=== PATIENT | female | born 1955 | race Caucasian/White ===

== ENCOUNTER 2022-12-05 09:01 | Outpatient (CLI) | payer MEDICARE, BC, SELFPAY ==
--- NOTE | 2022-12-05 10:11 | W.ANESCHARGE ---
Anesthesia Charges Start Date/Time Anesthesia Start Date: 12/05/22 Anesthesia Start Time: 09:44 Stop Date/Time Anesthesia Stop Date: 12/05/22 Anesthesia Stop Time: 10:08
--- NOTE | 2022-12-05 10:52 | W.ANESCHARGE ---
Anesthesia Charges Start Date/Time Anesthesia Start Date: 12/05/22 Anesthesia Start Time: 09:44 Stop Date/Time Anesthesia Stop Date: 12/05/22 Anesthesia Stop Time: 10:08
== END 2022-12-05 09:02 | disposition home or self-care (01) ==
LOC: OP CLINIC 09:03
PROVIDERS: PCP Student in an Organized Health Care Education/Training Program; Visit Provider Internal Medicine Gastroenterology
DX: Z86.010 Personal history of colon polyps (principal); K63.5 Polyp of colon
CPT/HCPCS: 45385; 811; 88305; J2704

== ENCOUNTER 2023-02-03 05:14 | Emergency (ER) | payer MEDICARE, BC, SELFPAY ==
[2023-02-03] VITALS (13 sets, daily range): BP systolic 156–204; BP diastolic 83–118; PULSE 71–84; RESP 14; TEMP 36.1; O2SAT 91–99; BMI 26.5
--- NOTE | 2023-02-03 05:32 | ED_ITS ---
HPI - Chest Pain General Time Seen by Provider: 05:32 Date Seen: 02/03/23 Chief Complaint: Hypertension Stated Complaint: high blood pressure, cough, chest pain Time Seen by Provider: 02/03/23 05:30 Source: patient, family and RN notes reviewed Mode of arrival: ambulatory Limitations: no limitations History of Present Illness HPI narrative: 67-year-old female who presents with complaints of feeling poorly for the past nine days. She reports sinus congestion, occasional cough, hoarse voice, fatigue. Has taken to COVID test which were both negative. Blood pressure was elevated yesterday which prompted a call the clinic, they indicated she should come to the emergency department. She denies headache, chest pain, vomiting, diarrhea, abdominal pain, urinary symptoms, shortness of breath. Related Data Home Medications Medication Instructions Recorded Confirmed atorvastatin 20 mg tablet 20 mg PO QPM 02/03/23 02/03/23 cholecalciferol (vitamin D3) 50 50 mcg PO DAILY 02/03/23 02/03/23 mcg (2,000 unit) capsule denosumab 60 mg/mL subcutaneous 60 mg subcut [id number] 02/03/23 02/03/23 syringe (Prolia) fluoxetine 20 mg capsule 20 mg PO QAM 02/03/23 02/03/23 fluoxetine 40 mg capsule mg PO 02/03/23 labetalol 100 mg tablet 50 mg PO BID 02/03/23 02/03/23 trazodone 50 mg tablet 150 mg PO QPM PRN insomnia 02/03/23 02/03/23 Previous Rx's Medication Instructions Recorded albuterol sulfate 90 mcg/actuation 2 puff inhalation Q4H PRN 02/03/23 aerosol inhaler shortness of breath or wheezing #8.5 grams prednisone 20 mg tablet 40 mg (2 x 20 mg) PO DAILY #10 tabs 02/03/23 Allergies Allergy/AdvReac Type Severity Reaction Status Date / Time No Known Drug Allergies Allergy Verified 02/03/23 05:28 Review of Systems Status of ROS Reports: 10 or more systems reviewed and unremarkable except as noted in History and below PFSH PFSH Social History Smoking Status: Current every day smoker What tobacco products do you use: cigarettes Smoking packs per day: 1.25 Smoking cigarettes per day: 25.0 Years smoked: 25 Smoking pack-years: 31.25 Do you use any of these nicotine containing products: None Second hand tobacco smoke exposure: No How often do you have a drink containing alcohol: 2-3 times a week AUDIT-C Alcohol total score: 3 Non-prescribed substance use: denies use Exam Const Vital Signs, click to edit/add: Vital Signs - 24 hr 02/03/23 05:22 02/03/23 06:26 02/03/23 06:30 Temperature 97.0 F L Pulse Rate 83 78 Pulse Rate [Pulse Oximeter] 71 Respiratory Rate 14 Blood Pressure Blood Pressure [Right Upper Arm] 204/114 H Pulse Oximetry 95 97 99 Oxygen Delivery Method Room Air Room Air 02/03/23 06:32 02/03/23 06:45 Temperature Pulse Rate 80 80 Pulse Rate [Pulse Oximeter] Respiratory Rate Blood Pressure 190/106 H Blood Pressure [Right Upper Arm] Pulse Oximetry 99 94 Oxygen Delivery Method Course Course ED Course: Patient seen and examined, prior records are reviewed. Social determine its of health includes smoking and access to affordable Healthcare, history of anxiety and depression as well as hypertension, Patient presents today with upper respiratory symptoms for about a week and elevated blood pressures. Blood pressure in the emergency department initially with high but at the time I saw the patient to was 143/111. Voice is very hoarse, occasional cough. She has bilateral inspiratory and expiratory wheezes. Symptoms are most consistent with viral infection and bronchitis, labs are ordered to evaluate for underlying cardiac disease or evidence for heart failure, chest x-ray to evaluate for pneumonia. No pleuritic chest pain, shortness of breath to suggest pulmonary embolism, defer CT imaging for now. Reevaluation(s) Time of Reevaluation #1: 07:37 Reevaluation #1: Chest x-ray independently interpreted by me negative for acute findings. Labs independently interpreted by me with negative COVID, negative influenza, no leukocytosis or anemia, troponin negative, BNP normal. Patient has upper respiratory symptoms overlying likely COPD with acute exacerbation. She will be discharged with inhaler, prednisone, and follow up with primary care. No indication for antibiotics at this time is no acute infiltrates on x-ray or lab or exam findings for bacterial pneumonia. I did discuss patient's mental health with her. She reports a long history of depression and anxiety, not currently seemed a therapist or counselor. She says she has had suicidal thoughts every day for most of her life but would never hurt herself or follow through on this, no plan, declines mental health assessment and is able to contract for safety. Vital Signs Vital signs: Initial Vital Signs Temperature 97.0 F L 02/03/23 05:22 Temperature Source Temporal Artery Scan 02/03/23 05:22 Pulse Rate 71 02/03/23 05:22 Respiratory Rate 14 02/03/23 05:22 Blood Pressure 204/114 H 02/03/23 05:22 Blood Pressure Mean 144 H 02/03/23 05:22 Blood Pressure Position Supine 02/03/23 05:22 Pulse Oximetry 95 02/03/23 05:22 Oxygen Delivery Method Room Air 02/03/23 05:22 Vital Signs Temperature 97.0 F L 02/03/23 05:22 Pulse Rate 71 02/03/23 05:22 Respiratory Rate 14 02/03/23 05:22 Blood Pressure 204/114 H 02/03/23 05:22 Pulse Oximetry 95 02/03/23 05:22 Oxygen Delivery Method Room Air 02/03/23 05:22 Temperature 97.0 F L 02/03/23 05:22 Pulse Rate 80 02/03/23 06:45 Respiratory Rate 14 02/03/23 05:22 Blood Pressure 190/106 H 02/03/23 06:32 Pulse Oximetry 94 02/03/23 06:45 Oxygen Delivery Method Room Air 02/03/23 06:26 MDM - Chest Pain Lab Data Labs: Lab Results 02/03/23 Range/Units 06:05 WBC 6.69 (4.50-11.00) K/uL RBC 3.84 L (4.00-5.20) m/uL Hgb 12.6 (12.0-16.0) gm/dL Hct 35.9 (33.0-51.0) % MCV 94 (80-100) fL MCH 33 (26-34) pg MCHC 35 (32-36) gm/dL RDW Coeff of Eusebia 12.1 (11.5-15.5) % Plt Count 242 (140-440) K/uL Neut % (Auto) 68.8 (42.0-72.0) % Lymph % (Auto) 21.5 (20-44) % [place] % (Auto) 6.6 (0.0-11.0) % Eos % (Auto) 1.9 (0.0-7.0) % Baso % (Auto) 0.3 (0.0-3.0) % Neut # (Auto) 4.60 (1.7-7.0) K/uL Lymph # (Auto) 1.44 (0.90-2.90) K/uL [place] # (Auto) 0.40 (0.00-0.90) K/UL Eos # (Auto) 0.13 (0.00-0.50) K/uL Baso # (Auto) 0.02 (0.00-0.30) K/uL Abs Immat Gran (auto) 0.06 (0.00-0.30) K/uL Imm/Tot Granulo (auto) 0.9 % Sodium 136 (135-149) mmol/L Potassium 3.8 (3.6-5.1) mmol/L Chloride 103 (96-114) mmol/L Carbon Dioxide 25 (20-32) mmol/L Anion Gap 8 (7-15) mEq/L BUN 13 (7-30) mg/dL Creatinine 0.8 (0.5-1.5) mg/dL Estimated Creat Clear 42.59 Estimated GFR 80 ml/min Glucose 101 (60-115) mg/dL Calcium 9.4 (8.4-10.6) mg/dL Magnesium 2.0 (1.5-2.6) mg/dL NT-Pro-B Natriuret Pep 126 pg/mL SARS-CoV-2 (PCR) Negative SARS-CoV-2 (Negative) Influenza Type A (PCR) Negative PCR FLU A (Negative) Influenza Type B (PCR) Negative PCR FLU B (Negative) RSV (PCR) Negative PCR RSV (Negative) POC Troponin I 0.00 L (0.01-0.04) ng/ml ECG Data Attestation: I personally reviewed and interpreted this ECG as follows: ECG interpretation date: 02/03/23 ECG interpretation time: 05:54 Prior ECG tracings: not available for review Interpretation: Sinus rhythm rate 70, no acute ST elevations or depressions, normal intervals, normal axis, QTC 444, VA 178 Discharge Plan Discharge Clinical Impression: Acute upper respiratory infection, Acute bronchitis Patient Disposition: Home, Self-Care Condition: Stable Instructions: Acute Bronchitis (ED), Wheezing (ED) Additional Instructions: Use inhaler 2 puffs every 2 hours while awake for 24 hours, then 2 puffs every 3 hours while awake for 24 hours, then 2 puffs every 4 hours while awake for 24 hours Take prednisone as prescribed Follow-up with your primary care doctor next week Activity Level: No Restrictions Prescriptions: New albuterol sulfate 90 mcg/actuation HFA aerosol inhaler 2 puff inhalation Q4H PRN (Reason: shortness of breath or wheezing) Qty: 8.5 0RF prednisone 20 mg tablet 40 mg PO DAILY Qty: 10 0RF No Action fluoxetine 40 mg capsule PO atorvastatin 20 mg tablet 20 mg PO QPM trazodone 50 mg tablet 150 mg PO QPM PRN (Reason: insomnia) labetalol 100 mg tablet 50 mg PO BID fluoxetine 20 mg capsule 20 mg PO QAM cholecalciferol (vitamin D3) 50 mcg (2,000 unit) capsule 50 mcg PO DAILY Prolia 60 mg/mL syringe 60 mg subcut [id number] Follow Up/Referrals: LISSETH MIN DO [Primary Care Provider] - Stand Alone [facility]
--- NOTE | 2023-02-03 05:45 | CRLHL7_ITS ---
For Patients: As a result of the Cures Act, medical imaging exams and procedure reports are released immediately into your electronic medical record. You may view this report before your referring provider. If you have questions, please contact your health care provider. INDICATION: Cough and chest pain. TECHNIQUE: Chest 2 views. COMPARISON: 03/12/2021. FINDINGS: Cardiovascular and mediastinum: Heart size and vasculature are normal in caliber and appearance. Lungs and pleural spaces: Lungs are clear. No sign of infiltrate or mass. No sign of pleural effusion. No pneumothorax. Bones and soft tissues: No significant findings. IMPRESSION: No acute findings and no significant changes from the prior exam. Dictated by Samuel Mcdermott MD @ 02/03/2023 6:38:11 AM (Electronically Signed)
[2023-02-03] MEDS: IPRAT-ALBUT 0.5-2.5 MG/3 ML NEB 1 NEB IH (06:23)
[2023-02-03 06:55] LABS: Chloride* 103 mmol/L (96-114); Sodium* 136 mmol/L (135-149)
[2023-02-03 06:56] LABS: Potassium* 3.8 mmol/L (3.6-5.1)
[2023-02-03 06:58] LABS: Anion Gap 8 mEq/L (7-15); Carbon Dioxide* 25 mmol/L (20-32); Creatinine* 0.8 mg/dL (0.5-1.5); Est. Creatinine Clearance* 42.59; Estimated Glomerular Filt Rate 80 ml/min
[2023-02-03 06:59] LABS: Blood Urea Nitrogen* 13 mg/dL (7-30); Calcium* 9.4 mg/dL (8.4-10.6); Glucose* 101 mg/dL (60-115)
[2023-02-03 07:06] LABS: PCR FLU A Negative PCR FLU A (Negative); PCR FLU B Negative PCR FLU B (Negative); PCR RSV Negative PCR RSV (Negative)
[2023-02-03 07:10] LABS: SARS PCR* Negative SARS-CoV-2 (Negative)
[2023-02-03 07:18] LABS: Basophils Absolute Auto 0.02 K/uL (0.00-0.30); Basophils Percent Auto 0.3 % (0.0-3.0); Eosinophils Absolute Auto 0.13 K/uL (0.00-0.50); Eosinophils Percent Auto 1.9 % (0.0-7.0); Hematocrit 35.9 % (33.0-51.0); Hemoglobin* 12.6 gm/dL (12.0-16.0); Immature Granulocytes Abs Auto 0.06 K/uL (0.00-0.30); Immature Granulocytes Pct Auto 0.9 %; Lymphocytes Absolute Auto 1.44 K/uL (0.90-2.90); Lymphocytes Percent Auto 21.5 % (20-44); Mean Corpuscular HGB Conc 35 gm/dL (32-36); Mean Corpuscular Hemoglobin 33 pg (26-34); Mean Corpuscular Volume 94 fL (80-100); Monocytes Percent Auto 6.6 % (0.0-11.0); Neutrophils Percent Auto 68.8 % (42.0-72.0); Platelet Count* 242 K/uL (140-440); RDW Coefficient of Variation % 12.1 % (11.5-15.5); Red Blood Count 3.84 m/uL (4.00-5.20); White Blood Count* 6.69 K/uL (4.50-11.00)
[2023-02-03 07:20] LABS: Slide Review Reflex No
[2023-02-03 07:21] LABS: NT Pro B Type NatriureticPept* 126 pg/mL
[2023-02-03] MEDS: METHYLPREDNISOLONE SOD SUCC 62.5 MG/ML (125) 125 MG IVP (08:06)
== END 2023-02-03 08:27 | disposition home or self-care (01) ==
PROVIDERS: Emergency Provider Family Medicine; PCP Student in an Organized Health Care Education/Training Program
DX: J20.8 Acute bronchitis due to other specified organisms (principal)
CPT/HCPCS: 36415; 71046; 80048; 83735; 83880; 84484; 85025; 87631; 93005; 94640; 96374; 99284; 99285; J2930

== ENCOUNTER 2023-04-16 10:12 | Outpatient (CLI) | payer MEDICARE, BC, SELFPAY | END 2023-04-16 10:13 | disposition home or self-care (01) | LOC: AMB 04-18 12:42 | PROVIDERS: PCP Student in an Organized Health Care Education/Training Program; Visit Provider Family Medicine | DX: R51.9 Headache, unspecified (principal); R42 Dizziness and giddiness | CPT/HCPCS: A0425; A0427 ==

== ENCOUNTER 2023-04-16 10:41 | Emergency (ER) | payer MEDICARE, BC, SELFPAY ==
[2023-04-16 10:48] VITALS: BP 151/102; PULSE 115; RESP 18; TEMP 36.8; O2SAT 93; BMI 25.7
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
[2023-04-16 11:13] VITALS: PULSE 120; O2SAT 95
[2023-04-16 11:15] VITALS: PULSE 115; O2SAT 93
--- NOTE | 2023-04-16 11:58 | ED.NURSE ---
pt was released to for a sober ride home, discharge instruction were also given to to review with pt at a later time.
== END 2023-04-16 11:59 | disposition home or self-care (01) ==
PROVIDERS: Emergency Provider Family Medicine; PCP Student in an Organized Health Care Education/Training Program
DX: F10.129 Alcohol abuse with intoxication, unspecified (principal); F41.9 Anxiety disorder, unspecified; R45.2 Unhappiness
CPT/HCPCS: 99283; 99284

== ENCOUNTER 2025-01-24 04:13 | Emergency (ER) | payer MEDICARE, BC, SELFPAY ==
--- OUTSIDE RECORDS SUMMARY | 2025-01-24 04:15 | XMS_ITS | Clinical Summary ---
Author Organization [facility] Address [address] [place] [id number] Care Team Providers Care Lithographed Plate Inspector Name Role Phone Jose Tobar DO Primary Care Provider [phone] Allergies Active Allergy Reactions Criticality Noted Date Comments Atenolol Dizziness,Intolerance-Can't Take 11/2006 Enalapril Headache High 06/03/2020 Erythromycin Intolerance-Can't Ta ke,Stomach Upset 07/19/2006 Hydrochlorothiazide Headache High 06/03/2020 Lisinopril Renal Failure 07/01/2009 Nifedipine Edema 06/15/2009 Medications sennosides-docusa te (SENOKOT S) (8.6-50 mg) tablet Twice A Day 07/25/19 21 Active fish oil-omega-3 fatty acids 300-1,000 mg Take 1 Capsule by mouth once daily. 12/14/19 22 Active naltrexone (REVIA) 50 mg tabletIndications :Alcoholism (HC) Take 1 Tablet (50 mg) by mouth once daily. 30 Tablet 2 06/13/19 24 Active atorvastatin (LIPITOR) 20 mg tabletIndications :Hyperlipidemia, unspecified hyperlipidemia type TAKE 1 TABLET (20 MG) BY MOUTH ONCE DAILY IN THE EVENING 90 Tablet 3 03/11/20 24 Active azithromycin (Zithromax Z-Jimmie) 250 mg tabletIndications :Bronchitis with bronchospasm Take 500 mg (2 tabs) by mouth on day 1, then 250 mg (1 tab) daily for days 2-5. 6 Tablet 04/05/20 24 Active albuterol HFA (ProAir HFA) 90 mcg/actuation inhalerIndication s:Bronchitis with bronchospasm Inhale 1-2 Puffs by mouth every 6 hours if needed for Shortness of Breath 1st choice. 1 Each 04/05/20 24 Active benzonatate (TESSALON) 100 mg capsuleIndication s:Bronchitis with bronchospasm Take 1 Capsule (100 mg) by mouth 3 times daily if needed for Cough. 30 Capsule 04/05/20 24 Active cholecalciferol (VITAMIN D3) 2,000 unit capsuleIndication s:Vitamin D deficiency TAKE 1 CAPSULE (2,000 UNITS) BY MOUTH ONCE DAILY. 90 Capsule 2 05/18/19 25 Active clobetasol 0.05 % ointment APPLY TO AFFECTED AREA ON LEFT THIGH TWICE DAILY FOR UP TO TWO WEEKS AT A TIME. TAKE A TWO WEEK BREAK, THEN REPEAT NEEDED FOR FLARES. 08/21/19 25 Active ketoconazole 2 % cream APPLY THIN LAYER TO TOE NAILS AND NAIL BEDS 1-2X DAILY ONGOING. 08/21/19 25 Active nicotine 21 mg/24 hr 21 mg/24 hr patchIndications: Tobacco abuse Apply 1 Patch on dry, clean, hairless skin once daily. 30 Patch 10/11/19 25 Active cloNIDine HCL 0.2 mg tabletIndications :Resistant hypertension,Inso mnia, idiopathic,JUMANA (generalized anxiety disorder) Take 1 Tablet (0.2 mg) by mouth two times daily. 180 Tablet 3 11/13/19 25 Active alendronate (FOSAMAX) 70 mg tabletIndications :Age related osteoporosis, unspecified pathological fracture presence TAKE 1 TABLET (70 MG) BY MOUTH ONCE A WEEK IN THE MORNING. TAKE ON EMPTY STOMACH WITH FULL GLASS OF WATER. DO NOT LIE DOWN FOR 1 HR. 13 Tablet 3 12/07/19 25 Active labetaloL (TRANDATE) 200 mg tabletIndications :Resistant hypertension TAKE 1 TABLET BY MOUTH TWO TIMES DAILY. 60 Tablet 01/20/20 25 Active FLUoxetine (PROZAC) 40 mg capsuleIndication s:Depression, major, single episode, moderate (HC) TAKE 2 CAPSULES (80 MG) BY MOUTH ONCE DAILY IN THE MORNING. 60 Capsule 01/20/20 25 Active labetaloL (TRANDATE) 200 mg tabletIndications :Resistant hypertension Take 1 Tablet (200 mg) by mouth two times daily. 180 Tablet 3 01/18/20 24 025 Discontinued FLUoxetine (PROZAC) 40 mg capsuleIndication s:Depression, major, single episode, moderate (HC) Take 2 Capsules (80 mg) by mouth once daily in the morning. 180 Capsule 3 01/18/20 24 025 Discontinued Active Problems Problem Noted Date Diagnosed Date Age-related osteoporosis wit hout current pathological fracture 11/29/2022 White coat syndrome with diagnosis of hypertensi on 12/13/2021 Colon polyp 08/11/2021 Overview (12/07/2022): Colonoscopy 07/2021 SSA with cytological dysplasia, multiple tubular adenomas, repeat in 6 months with propofol sedation Colonoscopy 11/2022 SSA, repeat in 5 years, propofol Alcoholism 03/22/2021 Back pain 03/22/2021 Gastritis 03/22/2021 Adrenal nodule 03/22/2021 status post left total knee arthroplasty 02/04/19 02/15/2019 Osteoarthritis of left knee 02/04/2019 Overview (02/04/2019): S/p Procedure(s): LEFT TOTAL KNEE ARTHROPLASTY 02/04/2019 @ 8:30 AM SPINAL WITH ADDUCTOR CANAL BLOCK ONLY on 02/04/[address] Foster. Insomnia 02/04/2019 Pap smear for cervical cancer screening 03/20/20 18 Overview (06/05/2023): 03/2018 ASCUS/HPV negative 05/29/23 ASCUS/HPV negative Provider plan: ASCUS is likely from atrophy and since negative HPV, I think she can be done screening. If she would like to continue to do paps, I'd suggest another in 3 years. Hyperlipidemia 03/08/2018 Post-traumatic stress disorder 11/20/2017 Alcoholic intoxication 10/08/2013 Major depressive disorder, recurrent episode, mo derate 10/26/2011 JUMANA (generalized anxiety disorder) 10/26/2011 Unspecified essential hypertension 07/19/2006 Resolved Problems Problem Noted Date Diagnosed Date Resolved Date Lymphoma 07/05/2021 08/06/2021 Encounters Date Type Department Care Team Description 01/18/2025 Refill [facility] [address] [place] [address] Jose Tobar, Refill Request (Fluoxetine) 01/17/2025 Refill [facility] [address] [place] [address] Jose Tobar DO Refill Request (Labetalol) 01/15/2025 11:00 AM CDT Office [facility] [address] [facility] [place] [address] Gustavo Packer PsyD, CRISTÓBAL Individual Therapy 01/15/2025 Travel 01/08/2025 12:30 PM CDT Office Visit [facility] [address] [place] [address] Gustavo Packer PsyD, CRISTÓBAL Individual Therapy 01/08/2025 Travel 01/01/2025 12:30 PM CDT Office Visit [facility] [address] [place] [address] Gustavo Packer PsyD, CRISTÓBAL Individual Therapy 01/01/2025 Travel 12/25/2024 8:00 AM CDT Office Visit [facility] [address] [place] [address] Gustavo Packer PsyD, CRISTÓBAL Individual Therapy; Trmt Plan 12/25/2024 Travel 12/18/2024 12:30 PM CDT Office Visit [facility] [address] [place] [address] Gustavo Packer PsyD, CRISTÓBAL Mental Health Intake 12/18/2024 Travel 12/04/2024 Refill [facility] [address] [place] [address] Jose Tobar DO Refill Request (Alendronate) 12/04/2024 Refill [facility] [address] [place] [address] Diane Trujillo PA Refill Request (Albuterol Hfa) 11/12/2024 8:05 AM CDT Office Visit [facility] [address] [place] [address] Jose Tobar DO Blood Pressure; Medication Management (Feels like the clonidine is helping - wonders if she can continue and maybe increase ) 11/12/2024 Travel from Last 3 Months Immunizations Immunization Administration Dates Next Due COVID-19 vaccine (Rumgr 30mcg/0.3mL) P F, MDV 03/29/2021 Influenza, Inactivated AIIV4 (Age 65+ Years) Preserv Free 03/29/2021,03/18/2020 Pneumococcal Conj 20-valent (Prevnar 20) 023 Pneumococcal conj 13-Valent (Prevnar 13) 022 Td (Age >=7 Years) 03/20/2018,05/15/1996 Tdap 05/10/2007 Zoster (Shingrix-RZV, recombinant) 06/22/2022, Zoster (Zostavax-ZVL, live) 01/23/2012 Family History Medical History Relation Name Comments Hypertension Brother 2 Hypertension Father Other Father malignant hyper thermia Cancer-breast Maternal Grandmother diagno sed at 78 Cancer Mother pancreatic Hypertension Mother Cancer Paternal Uncle malignant hyp erthermia Relation Name Status Comments Brother 1 Alive Brother 2 Father Alive Maternal Grandmother Mother , age 7 1, pancreatic cancer Paternal Uncle Social History Tobacco Use Types Packs/Day Years Used Date Smoking Tobacco: Every Day Cigarettes 1.3 30.7 Started: 1994 Smokeless Tobacco: Never Tobacco Cessation:Ready to Q uit: No; Counseling Given: Yes Alcohol Use Standard Drinks/Week Comments Not Currently 6 (1 standard drink = 0.6 oz pur e alcohol) 03/13/2021 stopped PHQ-2 Answer Date Recorded PHQ-2 TOTAL SCORE 5 10/14/2024 Social Connections Answer Date Recorded Do you often feel lonely or isolated from those around you? 0 02/19/2024 Financial Resource Strain Answer Date R ecorded Difficulty of Paying Living Expenses 3 02/19/2024 Difficulty of Paying Living Expenses Not on file 02/19/2024 Food Insecurity Answer Date Recorded Do you worry your food will run out before you are able to buy more? 1 02/19/2024 Transportation Needs Answer Date Record ed Does lack of transportation keep you from medica l appointments? 1 02/19/2024 Does lack of transportation keep you from work, meetings or getting things that you need? 1 02/19/2024 Housing Stability Answer Date Recorded What is your housing situation today? 1 02/19/2024 Utilities Answer Date Recorded Do you have trouble paying f or utilities (for example, heat, electricity, water, phone)? 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 Not on file Not on file Not on file Obstetrics History Para Term AB IAB SAB Ectopic Multiple Livin g Live Births 2 2 Date Outcome GA Total Labor Labor/2nd/3rd Weight Sex Type Anes PTL Hien A1 A5 Name Clin Para Para Last Filed Vital Signs Vital Sign Reading Time Taken Comments Blood Pressure 147/91 11/12/2024 8:41 AM CDT Pulse 70 11/12/2024 8:11 AM CDT Temperature 36.9 C (98.4 F) 04/05/2024 1:48 PM COMMISSARY PRODUCTION SUPERVISOR Respiratory Rate 12 09/17/2021 7:38 AM CDT Oxygen Saturation 100% 11/12/2024 8:11 AM CDT Inhaled Oxygen Concentration - - Weight 68.9 kg (152 lb) 11/12/2024 8:11 AM CDT Height 157.5 cm (5' 2) 02/19/2024 7:34 AM CDT Body Mass Index 27.8 02/19/2024 7:34 AM CDT Plan of Treatment Upcoming Encounters Date Type Department Care Team (Late st Contact Info) Description 02/13/2025 8:05 AM CDT Office Visit [facility] [address] [place] [address] Jose Tobar DO [address] [place] [address] Health Maintenance Due Date Last Done Comments Medicare Wellness for age 65+ 08/09/2023 08/08/2022, 07/05/2021 COVID-19 vaccine series ( season) 2025 08/28/2021, 03/29/2021, 08/09/2020, Additional history exists Influenza Vaccine (#1) 2025 03/29/2021, 2019 BMI (ht and wt on same day) for age 18+ 02/18/2025 02/19/2024, 05/29/2023, 08/08/2022, Additional history exists Depression screening for age 12+ 10/14/2025 10/14/2024, 08/08/2022, 08/08/2022, Additional history exists Low Dose CT (for lung CA) age 50-80 10/14/2025 10/14/2024 Mammogram for age 45-75 10/17/2025 10/18/19 25, 09/19/2023, 08/04/2022, Additional history exists Lipids for age 45-75 08/09/2027 08/08/2022, 01/29/2019, 01/29/2019, Additional history exists Colonoscopy through age 75 12/06/202712/05, 12/05/2022, 12/05/2022, Additional history exists Tetanus booster 03/20/2028 03/20/2018, 04/15, 05/15/1996 RSV vaccine for adults or (1 - 1-dose 75+ series) 2029 Hepatitis C screening for age 18-79 Completed 03/20/2018 DEXA/DXA scan for age 65+ Completed 06/01/2021 Zoster (shingles) series for age 50+ Completed 06/22/2022, 04/04/2022, 01/23/2012 Pneumococcal series for age 50+ Completed 08/08/2022, 07/05/2021 Hepatitis B series for 19+ Aged Out N o longer eligible based on patient's age to complete this topic Medical Devices Implanted Type Area Psychiatric Lpn Device Identifier Shelf Expiration Date Model / Serial / Lot Cmnt Bone Simplex P 1pk - [id number] Implanted:Qty: 1 on 02/04/2019 by Kwame Foster MD at [facility] Left: Knee [employer] 02/11/2021 6191-1-00 1# / / [id number] Cmnt Bone Simplex P 1pk - [id number] Implanted:Qty: 1 on 02/04/2019 by Kwame Foster MD at [facility] Left: Knee [employer] 01/12/2021 6191-1-00 1# / / [id number] Baseplate Tib Sz3 Triathlon Pe - [id number] Implanted:Qty: 1 on 02/04/2019 by Kwame Foster MD at [facility] Left: Knee [employer] 11/08/2023 5521-B-30 0# / / [id number] Fem Lt Sz2 Triathlon Cruc Ret Co Cr - [id number] Implanted:Qty: 1 on 02/04/2019 by Kwame Foster MD at [facility] Left: Knee [employer] 08/05/2023 5510-F-20 1# / / [id number] Patella [id number] Triathlon Asymmetric X3 - [id number] Implanted:Qty: 1 on 02/04/2019 by Kwame Foster MD at [facility] Left: Knee [employer] 11/25/2023 5551-G-35 0# / / [id number] Insert Knee Sz3 11mm Triathloncondyle Stbz X3 - [id number] Implanted:Qty: 1 on 02/04/2019 by Kwame Foster MD at [facility] Left: Knee [employer] 11/11/2023 5531-G-31 1# / / [id number] Procedures Procedure Name Priority Date/Time Associated Diagnosis Comments XR MAMMO BILAT SCREENING Routine 10/17/2024 8:14 AM CDT Screening mammogram for breast cancer CT CHEST SCREENING LOW DOSE WO CONTRAST Routine 10/14/2024 9:39 AM CDT Tobacco abuse Personal history of nicotine dependence SCAN-COLONOSCOPY 12/05/2022 12:0 0 AM CDT LC LIPID PANEL AND CHOL/HDL RATIO Routine 08/08/2022 2:53 PM CDT Hyperlipidemia, unspecified hyperlipidemia type XR DXA BONE DENSITY 2 SITES AXIAL Routine 06/01/2021 11:29 AM COMMISSARY PRODUCTION SUPERVISOR Closed wedge compression fracture of T11 vertebra, initial encounter (HC) Closed wedge compression fracture of T12 vertebra, initial encounter (HC) ANTI HCV Routine 03/20/2018 1:55 PM COMMISSARY PRODUCTION SUPERVISOR Elevated LFTs from Last 3 Months or Most Recently Relevant to Health Maintenance Results * XR MAMMO BILAT SCREENING (10/17/2024 8:14 AM CDT) Anatomical Region Laterality Modality BREASTS, Breast Left, Breast Right Bilateral Mammography Impressions 10/21/2024 2:03 PM CDT There is no radiographic evidence for malignancy. Recommend annual mammograms. MAMMOGRAM ASSESSMENT: ACR 1 Negative PATIENTS: You will also receive a letter with your examination results in an easy to read format. If you have questions about your results, please contact your referring provider. Narrative 10/21/2024 2:03 PM CDT For Patients: As a result of the Cures Act, medical imaging exams and procedure reports are released immediately into your electronic medical record. You may view this report before your referring provider. If you have questions, please contact your health care provider. XR MAMMO BILAT SCREENING [[id number]] CLINICAL HISTORY: This is an asymptomatic 69 y.o. patient. INDICATION FOR EXAM: Mammogram Screening. TECHNIQUE: CC and MLO views were obtained. This study was evaluated with the assistance of Computer-Aided Detection. COMPARISON FILM: Yes 09/19/23 [facility] 08/04/22 [facility] FINDINGS: There are scattered areas of fibroglandular density. There are no dominant masses, suspicious micro calcifications or areas of architectural distortion. us Adei Shaqra DO MAMMO Final Result * CT CHEST SCREENING LOW DOSE WO CONTRAST (10/14/2024 9:39 AM CDT) Anatomical Region Laterality Modality Computed Tomogra phy Impressions 10/17/2024 11:41 AM CDT 1. No suspicious pulmonary nodule (Lung-RADS Category 1: Negative). 2. Recommendation: Continue annual screening with low-dose chest CT in 12 months. Please note that all CT scans at this facility use dose modulation, iterative reconstruction and/or weight-based dosing when appropriate to reduce radiation dose to as low as reasonably achievable. Dictated by: Santiago Contreras DO @10/15/2024 1:58:51 PM/[facility] Narrative 10/17/2024 11:41 AM CDT For Patients: As a result of the Century Cures Act, medical imaging exams and procedure reports are released immediately into your electronic medical record. You may view this report before your referring provider. If you have questions, please contact your health care provider. CT CHEST SCREENING LOW-DOSE WITHOUT CONTRAST 10/14/2024 INDICATION: Tobacco abuse. Personal history of nicotine dependence. Greater than or equal to 20 pack-year smoking history. TECHNIQUE: Low-dose lung cancer screening non-contrast CT chest. Dose reduction techniques were used. COMPARISON: No prior chest CT available. FINDINGS: MEDIASTINUM/SOFT TISSUES: No pleural or pericardial effusions. No pathologic lymphadenopathy. Unenhanced thoracic aorta and main pulmonary arteries normal in caliber. Heart size within normal limits. Soft tissues of the thoracic wall are unremarkable. LUNGS: No pneumothorax. Central airways are patent. No suspicious nodule or acute airspace disease. UPPER ABDOMEN: Low-density near the dome of the liver most consistent with incidental cysts. Visualized upper abdomen is otherwise unremarkable. BONES: No acute or suspicious osseous abnormality. Chronic compression deformities of the T4, T11 and T12 vertebra, with focal kyphosis at T11. Degenerative changes of the spine. Jose Tobar DO CT Final Result * SCAN-COLONOSCOPY (12/05/2022 12:00 AM CDT) us Scanner OTHER Final Result * (ABNORMAL) LC LIPID PANEL AND CHOL/HDL RATIO (08/08/2022 2:53 PM CDT) Pathologist [facility] Cholesterol, Total 213(H) 100 - 199 mg/dL 08/10/2022 11:10 AM CDT [facility] Triglycerides 224(H) 0 - 149 mg/dL 08/10/2022 11:10 AM CDT [facility] HDL Cholesterol 77 >39 mg/dL 11:10 AM CDT [facility] VLDL Cholesterol Bhargav 37 5 - 40 mg/dL 08/10/2022 11:10 AM CDT [facility] ([facility]) LDL Chol Calc ([facility]) 99 0 - 99 mg/dL 08/10/2022 11:10 AM CDT [facility] ([facility]) T. Chol/HDL Ratio 2.8 0.0 - 4.4 ratio 08/10/2022 11:10 AM CDT [facility] ([facility]) Comment: T. Chol/HDL Ratio Men Women 1/2 Avg.Risk 3.4 3.3 Avg.Risk 5.0 4.4 2X Avg.Risk 9.6 7.1 3X Avg.Risk 23.4 11.0 Blood BLOOD SPECIMEN / Unknown Venipuncture / Unknown 08/08/2022 2:53 PM CDT 08/08/2022 2:55 PM CDT Narrative [facility] ([facility]) - 08/10/2022 11:10 AM CDT Performed at: [address] [place] [id number] System Sales Consultant: Sd Marrero MD, Phone: [phone] us Rose Maryi Ramirezjossy DO SEND OUTS Final Result [facility] ([facility]) [facility] [place] [address], * (ABNORMAL) XR DXA BONE DENSITY 2 SITES AXIAL (06/01/2021 11:29 AM COMMISSARY PRODUCTION SUPERVISOR) Anatomical Region Laterality Modality Spine, HIPS, HIPL, HIPR Other Impressions 06/07/2021 8:30 AM COMMISSARY PRODUCTION SUPERVISOR Osteoporosis. RECOMMENDATIONS: The National Osteoporosis Foundation recommends pharmacologic treatment for patients with T-scores of -2.5 or less, patients with prior history of fragility fractures, or patients with 10-year probability of greater than 3% at hips or greater than 20% of suffering major osteoporotic fractures. Recommend continued optimization of calcium and vitamin D intake through dietary means and/or supplementation and regular exercise. Consider pharmacologic therapy for osteoporosis. Follow-up bone density reading in 2 years if therapy initiated to assess therapeutic efficacy. Cecy Castro PA-C [facility] 06/07/2021 Narrative 06/07/2021 8:30 AM COMMISSARY PRODUCTION SUPERVISOR For Patients: Results are automatically released to your [facility] account once available, in compliance with federal regulations. This means that you may see your results before your provider has had a chance to review them. Please allow 2-3 business days for your provider to comment on the results. XR DXA Bone Mineral Density (BMD) EXAM LOCATION: [facility] [address] [facility] [address] PATIENT NAME: Monik Mendez DATE OF : 1955 EXAM DATE: 06/01/2021 REQUESTING PROVIDER: Jose Tobar DO GENDER AT : female HEIGHT: 5' 4.02 (03/15/2021) WEIGHT: 128 lb 3.2 oz (05/03/2021) MENOPAUSAL STATUS: Postmenopausal RACE/ETHNICITY: White RISK FACTORS: Alcohol > 3 drinks/day (prior), Eating Disorder, Smoking (current) and White Race CURRENT MEDICATION FOR BONE LOSS: NONE INDICATION: Closed wedge compression fracture of T11 vertebra, initial encounter; Closed wedge compression fracture of T12 vertebra, initial encounter COMPARISON DATE(S): None DXA scans are compared to prior studies for a patient only when the two (or more) studies were performed on the same scanner. It is not possible to compare data generated on one scanner to data from another because there are not standards in DXA equipment. This applies even if the two scanners are made by the same sharepoint architect. PROCEDURE: Dual-energy x-ray absorptiometry performed with routine technique. Reporting is completed in the form of a T-score. The T-score represents the standard deviation from peak bone mass based on young healthy adult. A Z-score is used for diagnosis in premenopausal women, and for men under the age of 50. FINDINGS: RESULT LUMBAR SPINE L1,L2, & L4 (W/O L3) BMD: 0.818 g/cm2 T-Score: - 3.0 Z-Score: - 1.1 Change from prior: None RESULTS FEMUR Left femoral neck BMD: 0.632 g/cm2 T-Score: - 2.9 Z-Score: - 1.2 Change from prior: None Right femoral neck BMD: 0.728 g/cm2 T-Score: - 2.2 Z-Score: - 0.5 Change from prior: None Left hip BMD: 0.634 g/cm2 T-Score: - 3.0 Z-Score: - 1.5 Change from prior: None Right hip BMD: 0.731 g/cm2 T-Score: - 2.2 Z-Score: - 0.7 Change from prior: None WHO criteria: Normal: T-score at or above -1 SD Osteopenia: T-score between -1.1 and -2.4 SD Osteoporosis: T-score at or below -2.5 SD FRAX RISK CALCULATION (USED FOR OSTEOPENIA ONLY): 10-year probability of major osteoporotic fracture: 17.9%. 10-year probability of hip fracture: 8.0%. Rose Maryi Ekaterina DO DEXA Final Result * ANTI HCV (03/20/2018 1:55 PM COMMISSARY PRODUCTION SUPERVISOR) HEPATITIS C ANTIBODY Non-React ml Non-React ml 03/20/2018 9:07 PM COMMISSARY PRODUCTION SUPERVISOR [facility] Comment:Antibodies to HCV no t detected; does not exclude the possibility of exposure to HCV. Blood BLOOD SPECIMEN / Unknown Venipuncture / Unknown 03/20/2018 1:55 PM COMMISSARY PRODUCTION SUPERVISOR 03/20/2018 1:57 PM COMMISSARY PRODUCTION SUPERVISOR Cezar La MD SEND OUTS Final Resu lt [facility] 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
[2025-01-24 04:18] VITALS: BP 177/91; PULSE 78; RESP 16; TEMP 36.6; O2SAT 98; BMI 29.2
--- NOTE | 2025-01-24 04:22 | CRLHL7_ITS ---
For Patients: As a result of the Century Cures Act, medical imaging exams and procedure reports are released immediately into your electronic medical record. You may view this report before your referring provider. If you have questions, please contact your health care provider. Indication: Pain Technique: Right knee 3 views Comparison: None Findings: Bones: No acute fracture or dislocation. Joint spaces: Tricompartmental osteoarthritis, most severe in the patellofemoral compartment with well corticated ossicle lateral to the patella. Soft tissues: Unremarkable. Impression: No acute fracture or dislocation. Dictated by Monique Goldstein MD @ 01/24/2025 5:36:52 AM (Electronically Signed)
--- NOTE | 2025-01-24 04:39 | ED.GENADULT ---
HPI - General Adult General Chief complaint: Extremity Pain/Injury, Lower Stated complaint: right knee gave out Time Seen by Provider: 01/24/25 04:31 History of Present Illness HPI narrative: Patient is a 69-year-old woman who presents with chronic pain in her right knee. She has no recent injuries. She has no swelling. She does have known chronic arthritis. He is able to bear weight with some difficulty. She has not had any signs of infection or fever. She woke up tonight and decided to come to the emergency room to investigate her knee pain. The x-ray upon my review shows fairly advanced osteoarthritis. No other major complaints or concerns. Pain is 6/10 and dull. It is located diffusely in the right knee. Related Data Home Medications ?Medication ?Instructions ?Recorded ?Confirmed atorvastatin 20 mg tablet 20 mg PO QPM 02/03/23 01/24/25 cholecalciferol (vitamin D3) 50 50 mcg PO DAILY 02/03/23 02/03/23 mcg (2,000 unit) capsule denosumab 60 mg/mL subcutaneous 60 mg subcut [id number] 02/03/23 02/03/23 syringe (Prolia) fluoxetine 40 mg capsule 80 mg PO 02/03/23 labetalol 100 mg tablet 50 mg PO BID 02/03/23 01/24/25 trazodone 50 mg tablet 150 mg PO QPM PRN insomnia 02/03/23 01/24/25 clonidine HCl 0.1 mg tablet 0.1 mg PO BID 01/24/25 01/24/25 Previous Rx's ?Medication ?Instructions ?Recorded albuterol sulfate 90 mcg/actuation 2 puff inhalation Q4H PRN 02/03/23 aerosol inhaler shortness of breath or wheezing #8.5 grams prednisone 20 mg tablet 40 mg (2 x 20 mg) PO DAILY #10 tabs 02/03/23 Allergies Allergy/AdvReac Type Severity Reaction Status Date / Time No Known Drug Allergies Allergy Verified 02/03/23 05:28 Review of Systems Status of ROS: Reports: 10 or more systems reviewed and unremarkable except as noted in History and below [facility] Social History Smoking Status: Current every day smoker What tobacco products do you use: cigarettes Smoking packs per day: 1.25 Smoking cigarettes per day: 25.0 Years smoked: 25 Smoking pack-years: 31.25 Do you use any of these nicotine containing products: None Second hand tobacco smoke exposure: No How often do you have a drink containing alcohol: 2-3 times a week AUDIT-C Alcohol total score: 3 Non-prescribed substance use: denies use Exam Narrative: Exam Narrative: EXAM GENERAL: Patient appears comfortable and well. EYES: No scleral icterus. LYMPH: No supraclavicular or cervical lymphadenopathy. SKIN: Visible skin seen during exam normal or with benign process only. EXT: Chronic advanced osteoarthritic appearing right knee. No other acute abnormalities. ABD: Soft, non tender, non distended. PSYCH: Good eye contact, speech is not pressured. Const: Vital Signs, click to edit/add: Vital Signs - 24 hr 01/24/25 04:18 Temperature 98 F Pulse Rate [Pulse Oximeter] 78 Respiratory Rate 16 Blood Pressure [Ri ght Upper Arm] 177/91 H Pulse Oximetry 98 Oxygen Delivery Me thod Room Air Course Course ED Course: Patient seen examined. I do not see a fracture on her x-ray. Patient has had no acute injuries. I do recommend Tylenol Motrin ice and follow-up with orthopedics. Vital Signs Vital signs: Initial Vital Signs Temperature 98 F 01/24/25 04:18 Temperature Source Temporal Artery Scan 01/24/25 04:18 Pulse Rate 78 01/24/25 04:18 Respiratory Rate 16 01/24/25 04:18 Blood Pressure 177/91 H 01/24/25 04:18 Blood Pressure Mean 119 H 01/24/25 04:18 Blood Pressure Position Semi-Fowlers 01/24/25 04:18 Pulse Oximetry 98 01/24/25 04:18 Oxygen Delivery Method Room Air 01/24/25 04:18 Vital Signs Temperature 98 F 01/24/25 04:18 Pulse Rate 78 01/24/25 04:18 Respiratory Rate 16 01/24/25 04:18 Blood Pressure 177/91 H 01/24/25 04:18 Pulse Oximetry 98 01/24/25 04:18 Oxygen Delivery Method Room Air 01/24/25 04:18 Temperature 98 F 01/24/25 04:18 Pulse Rate 78 01/24/25 04:18 Respiratory Rate 16 01/24/25 04:18 Blood Pressure 177/91 H 01/24/25 04:18 Pulse Oximetry 98 01/24/25 04:18 Oxygen Delivery Method Room Air 01/24/25 04:18 Discharge Plan Discharge Clinical Impression: Knee osteoarthritis Patient Disposition: Home, Self-Care Condition: Stable Instructions: Osteoarthritis (ED) Additional Instructions: Ibuprofen 600 mg 3 times a day as needed Tylenol 650 mg 3 times a day as needed Ice Follow-up with orthopedics as needed. Activity Level: No Restrictions Discharge Diet: Regular Prescriptions: No Action fluoxetine 40 mg capsule 80 mg PO atorvastatin 20 mg tablet 20 mg PO QPM trazodone 50 mg tablet 150 mg PO QPM PRN (Reason: insomnia) labetalol 100 mg tablet 50 mg PO BID cholecalciferol (vitamin D3) 50 mcg (2,000 unit) capsule 50 mcg PO DAILY Prolia 60 mg/mL syringe 60 mg subcut [id number] albuterol sulfate 90 mcg/actuation HFA aerosol inhaler 2 puff inhalation Q4H PRN (Reason: shortness of breath or wheezing) Qty: 8.5 0RF prednisone 20 mg tablet 40 mg PO DAILY Qty: 10 0RF clonidine HCl 0.1 mg tablet 0.1 mg PO BID Follow Up/Referrals: LISSETH MIN DO [Primary Care Provider, Family Practice] [facility] Inst[facility]
[2025-01-24] MEDS: IBUPROFEN 200 MG TABLET 600 MG PO (04:47)
== END 2025-01-24 05:01 | disposition home or self-care (01) ==
PROVIDERS: Emergency Provider Internal Medicine; PCP Student in an Organized Health Care Education/Training Program
DX: M17.11 Unilateral primary osteoarthritis, right knee (principal)
CPT/HCPCS: 73562; 99283; A9270